=== PATIENT | female | born 1985 | race Caucasian/White ===

== ENCOUNTER 2020-11-02 02:42 | Day surgery (SDC) | payer OTHER, SELFPAY ==
--- NOTE | 2020-10-30 13:15 | PM.IMHP ---
H&P: HPI History of Present Illness Date/Time: 10/30/20 13:15 35-year-old 4 para 1 admitted for diagnostic laparoscopy. She complains of pain and dyspareunia. She has had multiple miscarriages and has a family history of endometriosis. Ultrasound was and helpful. Risks and benefits reviewed in full Chief Complaint: pelvic pain and dyspareunia Review of Systems Review of Systems: All systems reviewed & are unremarkable except as noted in HPI and below PMFSH Family History Family History Other Family history of coronary artery disease Hypertension Social History Social History Smoking status: Never smoker Smoking end date: 03/09/06 Alcohol intake: never Meds Home Medications and Allergies Allergies Allergy/AdvReac Type Severity Reaction Status Date / Time No Known Allergies Allergy Mild Unverified 03/01/19 16:10 Exam Const: General: no acute distress Eyes: General: appearance normal, both eyes and all related structures Neck: Neck: supple and no JVD Thyroid: thyroid normal Resp: Effort & Inspection: normal respiratory effort Auscultation: clear to auscultation bilaterally Cardio: Rate: regular rate Rhythm: regular rhythm GI: Inspection: non-distended GI Palp: Yes Soft to palpation, No Tenderness to palpation present (GI) and No Guarding due to palpation present (GI) Auscultation: normal bowel sounds : External Female Exam: normal external appearance Speculum Exam - Vagina: normal appearance of the vagina Speculum Exam - Cervix: Cervical os closed Bimanual exam- vagina & uterus: enlarged and Uterine tenderness Bimanual Exam- Adnexa, other: tender Skin: General skin exam: no rashes or lesions noted Extrem: General: normal to inspection and no edema Psych: Mental Status: mental status grossly normal Affect: normal affect Assessment and Plan Additional Plan impression: Chronic pelvic pain Plan: Diagnostic laparoscopy. Risks and benefits reviewed in full
[2020-11-01 09:45] VITALS: BMI 36.6
--- NOTE | 2020-11-01 13:17 | WPDANESEPPF ---
Anes - Initial Pre Proc Eval Procedure: Operation Date: 11/02/20 09:30 Proposed Procedures p Diagnostic Laparoscopy - Jose De Jesus Salmon MD Date/Time: 11/01/20 13:17 Surgeon: Jose De Jesus Salmon MD Pre Op Diagnosis: pelvic pain Patient Data Age: 35 Gender: F Height: 1.65 m Weight: 99.79 kg Allergies Allergy/AdvReac Type Severity Reaction Status Date / Time No Known Allergies Allergy Mild Verified 11/02/20 07:38 Home Medications Medication Instructions Recorded Confirmed Type cholecalciferol (vitamin D3) 125 mcg PO DAILY 11/01/20 11/02/20 History [Dialyvite Vitamin D] folic acid 0.8 mg PO DAILY 11/01/20 11/02/20 History fs-jsuixqn-cav-iron fm-FA-vitK 1 tablet PO DAILY 11/01/20 11/02/20 History [One-A-Day Women's Complete] hydrocodone-acetaminophen 1 tablet PO Q4H PRN #30 tablet 11/02/20 Rx Patient hx anesthesia problems: none Family hx anesthesia problems: none PMFSH Past Medical History Medical History (Updated 11/02/20 @ 07:17 by Jose De Jesus Salmon MD) Anxiety Rheumatoid arthritis Surgical History Surgical History (Updated 11/01/20 @ 13:18 by Dann Goldberg DO) History of History of cholecystectomy Family History Family History Other Family history of coronary artery disease Hypertension Social History Social History Smoking packs per day: 0.5 Smoking cigarettes per day: 10.0 Years smoked: 2 Smoking pack-years: 1.00 Smoking status: Former smoker Tobacco type: cigarettes Second hand tobacco smoke exposure: No Smoking end date: 11/01/05 Alcohol intake: current Drinks per week: 1 Alcohol use details: BEER Substance use: never Living arrangements: with family Spiritual care concerns: No Anes - Eval Final PreProcedure Day of Procedure 11/01/20 13:17 Patient weight: obese Heart: regular rate and rhythm Lungs: clear to auscultation and normal air movement Airway: Mallampati scale class II Neurological: alert and oriented Last oral intake: >/= 8 hours ASA classification: II Emergent: no Anesthetic plan: proceed Anesthesia type and monitoring: general ETT and standard monitoring Informed Consent: The patient's anesthetic plan and its attendant risks and benefits were discussed with the patient/family/POA. Questions were solicited and answers provided to the satisfaction of the patient/family/POA.
[2020-11-02] VITALS (9 sets, daily range): BP systolic 136–172; BP diastolic 84–114; PULSE 50–76; RESP 12–18; TEMP 36.1–36.4; O2SAT 96–100
--- NOTE | 2020-11-02 07:16 | WPDHPUPDATE1 ---
History and Physical Update Update Date/Time: 11/02/20 07:16 History and Physical has been reviewed, including an updated exam of the patient. There are NO changes in the patient's condition. Risks, benefits, and alternatives have been discussed and questions answered. Patient agrees to proceed with procedure.
[2020-11-02] MEDS: LACTATED RINGERS 1,000 ML 30 ML IV CONT ×2 (07:56→11:16)
[2020-11-02] MEDS: KETOROLAC 15 MG/ML VIAL (*BKC) IV PUSH (08:00)
[2020-11-02] MEDS: ACETAMINOPHEN 500 MG TABLET 1000 MG PO (08:00)
--- NOTE | 2020-11-02 08:04 | SUR.PREOP ---
patient updated on surgery delay, will update when more information is available.
--- NOTE | 2020-11-02 09:06 | SUR.PREOP ---
patient updated that delay is approx 1.5 hours with surgery time approximately 11:00. called and notified as well.
--- NOTE | 2020-11-02 11:03 | W.PM.PROC2 ---
Procedure Note - Detailed Date of Procedure 11/02/20 Pre-op Diagnosis pelvic pain Post-op Diagnosis other (Endometriosis was present and a large right ovarian cyst) Procedure Performed Laparoscopic destruction of endometriosis/destruction of right ovarian cyst Surgeon Jose De Jesus Salmon MD Anesthesia general Indications The left ovary was absent and a stub of the left tube was present. The right ovary contained multiple follicular cyst. The uterus appeared within normal limits. There were areas of endometriosis along the right and left uterosacral ligament in the form of powder burn lesions. The appendix appeared normal. Gallbladder was unable be seen and was suspected to have been removed secondary to the scarring over the liver Description of Procedure The patient was prepped draped in the normal sterile fashion placed in the dorsal lithotomy position. Under excellent general endotracheal anesthesia weighted speculum placed in posterior fornix vagina. Anterior lip of the cervix was then grasped with a single-tooth tenaculum. And attached to the for uterine manipulation. The bladder was emptied of clear urine in the weighted speculum was removed. Gloves were changed An infraumbilical incision made the Veress needle passed in the abdomen. The abdomen filled with CO2 gas to 15 of mercury. The 5mm trocar advanced in the abdomen under direct visualization assuring no injury. The patient was placed in Trendelenburg and a suprapubic incision made. The 5mm trocar advanced into the abdomen under direct visualization assuring no injury. The above findings were seen. The right ovary was opened in several of its follicles and drained of follicular clear fluid irrigation was undertaken. The left ovary was absent. The areas of endometriosis along the right and left uterosacral ligament were photo documented. These were then cauterized at 35 w per 2nd with monopolar cautery irrigated. The remainder the pelvis appeared within normal limits. The lower site removed. The gas removed from the abdomen. The upper site removed. Incisions closed with 4-0 Monocryl and glue. The instruments removed from the vagina. The patient was awakened. She went to recovery in satisfactory condition. All sponge, needle, instrument counts were correct. There were no immediate complications. Estimated Blood Loss 5 Drains No Packing No Pathology none sent Complications No immediate complications Condition stable Disposition PACU
[2020-11-02] MEDS: fentaNYL CITRATE INJ (*CRX) 100 MCG/2 ML VIAL 25 MCG IV PUSH ×8 (11:25→12:02)
[2020-11-02] MEDS: oxyCODONE HCL (*CRX) 5 MG TAB IR PO (12:29)
== END 2020-11-02 13:16 | disposition home or self-care (01) ==
PROVIDERS: PCP Family Medicine; Visit Provider Obstetrics & Gynecology
PROC: (CPT 49320; principal; 2020-11-02 09:30)
DX: R10.2 Pelvic and perineal pain (principal); N83.01 Follicular cyst of right ovary; N80.3 Endometriosis of pelvic peritoneum; F41.9 Anxiety disorder, unspecified; M06.9 Rheumatoid arthritis, unspecified; Z87.891 Personal history of nicotine dependence; E66.9 Obesity, unspecified; Z68.37 Body mass index [BMI] 37.0-37.9, adult; N94.10 Unspecified dyspareunia
CPT/HCPCS: 58662; 36415; 86850; 86900; 86901; A9270; J0330; J1200; J1885; J2250; J2405; J2704; J3010; J7030; J7120

== ENCOUNTER 2022-11-22 09:38 | Emergency (ER) | payer OTHER, SELFPAY ==
--- NOTE | ~2022-11-22 | XR_ITS ---
XR ankle RT min 3V DATE: 11/22/2022 10:09 INDICATION: Ankle injury TECHNIQUE: 4 views COMPARISON: None FINDINGS: Mild to moderate lateral ankle soft tissue swelling. No fracture or dislocation of the ankl e or disruption of the ankle mortise is detected. Mild plantar and mild prominent posterior calcaneal enthesopathy IMPRESSION: Mild to moderate lateral ankle soft tissue swelling; no fracture or dislocation Plantar and posterior calcaneal enthesopathy Reviewed, dictated and finalized at location [facility].
--- NOTE | ~2022-11-22 | XR_ITS ---
XR ankle LT min 3V DATE: 11/22/2022 10:09 INDICATION: Ankle injury, pain TECHNIQUE: 4 views COMPARISON: None FINDINGS: Mild plantar calcaneal enthesopathy. No fracture or dislocation of the ankle or disruption of the ankle mortise is detected. No periosteal reaction or bone destruction. IMPRESSION: No fracture or dislocation of the ankle Reviewed, dictated and finalized at location [facility].
[2022-11-22 09:39] VITALS: BP 157/115; PULSE 69; RESP 20; TEMP 36.3; O2SAT 100
--- NOTE | 2022-11-22 10:00 | ED.LOWEXIN ---
HPI - Extremity Injury (Lower) General Chief Complaint: Extremity Injury, Lower Stated Complaint: fall, bilateral ankle injury Time Seen by Provider: 11/22/22 10:00 Source: patient and family (spouse) Mode of arrival: wheelchair Limitations: no limitations History of Present Illness HPI Narrative: patient is a pleasant 37-year-old female who presents emergency department today and wheelchair by private vehicle with her spouse for evaluation of bilateral ankle pain right greater than left. Patient states that she today before coming here had stepped down and rolled her ankle hearing a pop. She states that the bilateral ankles her to the outer aspect of the right is much worse. States she was unable to bear weight. Denies numbness or tingling bilateral extremities. She did not strike her head. Denies any other symptoms. Denies chance of . Related Data Home Medications Medication Instructions Recorded Confirmed cholecalciferol (vitamin D3) 125 125 mcg PO DAILY 11/01/20 11/02/20 mcg (5,000 unit) capsule (Dialyvite Vitamin D) folic acid 800 mcg tablet 0.8 mg PO DAILY 11/01/20 11/02/20 bcskwzcw-ihtkmwf-rokw-iron 18 1 tablet PO DAILY 11/01/20 11/02/20 mg-FA 400 mcg-vit K 25 mcg tablet (One-A-Day Women's Complete(with vit K)) Allergies Allergy/AdvReac Type Severity Reaction Status Date / Time No Known Allergies Allergy Mild Verified 11/22/22 09:44 Review of Systems Review of Systems: CONSTITUTIONAL: Denies fever, chills, or sweats. CARDIOVASCULAR: Denies chest pain, palpitations, or edema. RESPIRATORY: Denies cough or dyspnea. SKIN: Denies rash or itching. MUSCULOSKELETAL: + bilateral ankle pain worse on right. Denies back pain or myalgia. NEUROLOGIC: Denies headache, numbness, or weakness. PSYCHIATRIC: Denies anxiety or depression. All systems reviewed & are unremarkable except as noted in HPI and below PMFSH Past Medical History Medical History Anxiety Rheumatoid arthritis Surgical History Surgical History History of History of cholecystectomy Family History Family History Other Family history of coronary artery disease Hypertension Social History Social History Smoking packs per day: 0.5 Smoking cigarettes per day: 10.0 Years smoked: 2 Smoking pack-years: 1.00 Smoking status: Former smoker Tobacco type: cigarettes Second hand tobacco smoke exposure: No Smoking end date: 11/01/05 Alcohol intake: current Drinks per week: 1 Alcohol use details: BEER Substance use: never Living arrangements: with family Spiritual care concerns: No Exam Narrative: GENERAL: Well-appearing, well-nourished, obese, lying on exam stretcher, appears mildly uncomfortable/in pain. no distress noted. HEAD: Normocephalic, atraumatic. NECK: Supple. CHEST: respirations regular and non-labored. HEART: Regular rate. Normal peripheral pulses. 2+ pedal pulse bilaterally EXTREMITIES: TTP to the lateral malleolus to both left and right ankles. there is swelling bilaterally to lateral aspect R>L. decreased ROM due to pain. no Achilles instability or tenderness. no distal tib/fib tenderness. no ankle instability noted. able to move toes on both feet. SKIN: Warm, dry, no rash. NEURO: No focal deficits. Alert and oriented x3. CN II-XII grossly intact. distal NV intact to BLE PSYCH: Normal mood and affect. Course Vital Signs Vital signs: Vital Signs Temperature 97.4 F L 11/22/22 09:39 Pulse Rate 69 11/22/22 09:39 Respiratory Rate 20 11/22/22 09:39 Blood Pressure 157/115 H 11/22/22 09:39 Pulse Oximetry 100 11/22/22 09:39 Oxygen Delivery Room Air 11/22/22 09:39 Temperature 97.4 F L 11/22/22 09:39 Pulse Rate 69
[2022-11-22] MEDS: HYDROcodone/acetaminophen (*CRX) 7.5-325 MG TABLET 1 TAB PO (11:11)
[2022-11-22] MEDS: KETOROLAC 30 MG/ML VIAL (*BKC) IM (11:12)
== END 2022-11-22 11:26 | disposition home or self-care (01) ==
PROVIDERS: Emergency Provider Nurse Practitioner; PCP Family Medicine
DX: S93.401A Sprain of unspecified ligament of right ankle, initial encounter (principal); S93.402A Sprain of unspecified ligament of left ankle, initial encounter; R03.0 Elevated blood-pressure reading, without diagnosis of hypertension; F41.9 Anxiety disorder, unspecified; M06.9 Rheumatoid arthritis, unspecified; X50.0XXA Overexertion from strenuous movement or load, initial encounter
CPT/HCPCS: 73610; 96372; 99284; A9270; J1885

== ENCOUNTER 2023-06-10 13:41 | Outpatient (CLI) | payer OTHER, SELFPAY ==
--- NOTE | ~2023-06-10 | MM_ITS ---
EXAMINATION: MM screening casey BI w nieves HISTORY: Screening TECHNIQUE: Craniocaudal and mediolateral oblique 3-D tomosynthesis images were obtained and synthetic 2-D images were generated. CAD analysis was submitted and interpreted. COMPARISON: No prior mammogram is available for comparison at this institution. BREAST PARENCHYMAL COMPOSITION: Dense: The breasts are extremely dense, which lowers the sensitivity of mammography. FINDINGS: There is no evidence of suspicious mass, calcification, or architectural distortion to sugg est malignancy in either breast. There has been no suspicious interval change. IMPRESSION: 1. No mammographic evidence of malignancy. 2. Recommend routine screening mammography in one year. BI-RADS Category 1: Negative Reviewed, dictated and finalized at location [facility].
== END 2023-06-10 13:42 ==
LOC: MICIMG 13:43
PROVIDERS: PCP Obstetrics & Gynecology; Visit Provider Obstetrics & Gynecology
DX: Z12.31 Encounter for screening mammogram for malignant neoplasm of breast (principal)
CPT/HCPCS: 77063; 77067

== ENCOUNTER 2023-07-27 09:42 | Outpatient (CLI) | payer OTHER, SELFPAY ==
[2023-07-27 10:47] LABS: Basophils Absolute Auto 0.1 K/mm3 (0.0-0.1); Eosinophils Absolute Auto 0.2 K/mm3 (0-0.3); Eosinophils Percent Auto 1.9 % (0-4.4); Hemoglobin 11.7 g/dL (12.0-15.0); Immature Granulocyte Absolute 0.05 K/mm3 (0.00-0.031); Immature Granulocyte Percent A 0.5 % (0-0.5); Lymphocytes Absolute Auto 2.95 K/mm3 (0.9-3.2); Lymphocytes Percent Auto 31.5 % (18.3-44.2); Mean Corpuscular HGB Conc 30.8 g/dl (32-36); Mean Corpuscular Hemoglobin 26.6 pg (26-34); Mean Corpuscular Volume 86.4 fl (80-100); Monocytes Absolute Auto 0.6 K/mm3 (0.1-0.6); Monocytes Percent Auto 6.3 % (2.6-8.5); Neutrophils Absolute Auto 5.5 K/mm3 (1.3-6.7); Neutrophils Percent Auto 58.8 % (45.5-73.1); Platelet Count Result 376 k/mm3 (150-375); Red Cell Distribution Width 13.7 % (11.5-14.5); White Blood Count 9.4 K/mm3 (4.5-10.0)
[2023-07-27 11:01] LABS: Alanine Aminotransferase 15 U/L (6-35); Albumin Level 4.5 g/dL (3.5-5.1); Alkaline Phosphatase 88 U/L (38-126); Anion Gap 6 mmol/L (4-12); Aspartate Amino Transferase 26 U/L (14-36); Bilirubin,Total 0.5 mg/dL (0.2-1.3); Blood Urea Nitrogen 9 mg/dL (7-17); Calcium 8.7 mg/dL (8.4-10.2); Carbon Dioxide 29 mmol/L (22-30); Chloride 103 mmol/L (98-107); Estimated Glomerular Filt Rate > 60; Glucose 115 mg/dL (65-110); Potassium 3.2 mmol/L (3.4-5.0); Sodium 138 mmol/L (137-145)
== END 2023-07-27 09:43 | disposition home or self-care (01) ==
LOC: ANHLAB 09:43
PROVIDERS: PCP Family Medicine; Visit Provider Physician Assistant
DX: R10.9 Unspecified abdominal pain (principal)
CPT/HCPCS: 36415; 80053; 85025

== ENCOUNTER 2023-07-30 14:51 | Outpatient (CLI) | payer OTHER, SELFPAY ==
--- NOTE | ~2023-07-30 | CT_ITS ---
EXAMINATION: CT abdomen pelvis wo con DATE: 07/30/2023 15:05 INDICATION: Bilateral lower abdominal pain, right greater than left TECHNIQUE: Computed tomography (CT) of the abdomen and pelvis was performed without intravenous contr ast. Automated exposure control and iterative reconstruction technique were employed. Exam dose: 131 7.38 mGy-cm total exam DLP. COMPARISON: None. FINDINGS: The lung bases are clear. Normal heart size. No pericardial or pleural effusion. Status post cholecystectomy. No bile duct or pancreatic duct dilatation. No hepatic, pancreatic, splenic, adrenal or renal space-occupying mass lesion is evident on this limi annette noncontrast examination. No urinary tract calculus or hydroureteronephrosis. The urinary bladder is unremarkable. Approximately 4.3 x 5.3 cm right ovarian cyst with attenuation of approximately 15 Hounsfield units. The uterus and adnexal areas are otherwise unremarkable. Normal caliber of the abdominal aorta. No intraperitoneal or retroperitoneal or pelvic mass lesion or adenopathy or ascites is noted otherwise. Normal appendix. Mild diverticulosis of left and right colon; no CT evidence of diverticulitis. No bowel obstruction, bowel wall thickening, pneumatosis or intraperitoneal free air is detected. Included skeletal structures are unremarkable. IMPRESSION: Status post cholecystectomy Approximately 4.3 x 5.3 cm right ovarian cystic lesion. Consider pelvic ultrasound for further evalua tion as clinically appropriate Mild left or right colonic diverticula; no evidence of diverticulitis Normal appendix Reviewed, dictated and finalized at [facility]. Reviewed, dictated and finalized at location [facility]. IMPRESSION: Status post cholecystectomy Approximately 4.3 x 5.3 cm right ovarian cystic lesion. Consider pelvic ultraso und for further evaluation as clinically appropriate Mild left or right colonic diverticula; no evidence of diverticulitis Normal appendix
== END 2023-07-30 14:52 | disposition home or self-care (01) ==
PROVIDERS: PCP Family Medicine; Visit Provider Physician Assistant
DX: R10.9 Unspecified abdominal pain (principal); Z90.49 Acquired absence of other specified parts of digestive tract; K57.30 Diverticulosis of large intestine without perforation or abscess without bleeding
CPT/HCPCS: 74176

== ENCOUNTER 2024-03-23 11:36 | Outpatient (CLI) | payer OTHER, SELFPAY ==
[2024-03-23 12:11] LABS: Basophils Absolute Auto 0.1 K/mm3 (0.0-0.1); Basophils Percent Auto 0.9 % (0.2-1.2); Eosinophils Absolute Auto 0.2 K/mm3 (0-0.3); Eosinophils Percent Auto 2.5 % (0-4.4); Hematocrit 38.8 % (37.0-47.0); Hemoglobin 11.7 g/dL (12.0-15.0); Immature Granulocyte Absolute 0.03 K/mm3 (0.00-0.031); Immature Granulocyte Percent A 0.4 % (0-0.5); Lymphocytes Absolute Auto 3.23 K/mm3 (0.9-3.2); Lymphocytes Percent Auto 38.1 % (18.3-44.2); Mean Corpuscular HGB Conc 30.2 g/dl (32-36); Mean Corpuscular Hemoglobin 25.6 pg (26-34); Mean Corpuscular Volume 84.9 fl (80-100); Mean Platelet Volume 10.5 fl (7.4-10.4); Monocytes Absolute Auto 0.5 K/mm3 (0.1-0.6); Monocytes Percent Auto 6.1 % (2.6-8.5); Neutrophils Absolute Auto 4.4 K/mm3 (1.3-6.7); Platelet Count Result 400 k/mm3 (150-375); Red Blood Count 4.57 M/mm3 (4.2-5.4); Red Cell Distribution Width 15.3 % (11.5-14.5); White Blood Count 8.5 K/mm3 (4.5-10.0)
[2024-03-23 12:26] LABS: Alanine Aminotransferase 32 U/L (6-35); Albumin Level 4.1 g/dL (3.5-5.1); Alkaline Phosphatase 100 U/L (38-126); Anion Gap 7 mmol/L (4-12); Aspartate Amino Transferase 27 U/L (14-36); Bilirubin,Total 0.7 mg/dL (0.2-1.3); Blood Urea Nitrogen 8 mg/dL (7-17); Calcium 8.7 mg/dL (8.4-10.2); Carbon Dioxide 26 mmol/L (22-30); Chloride 105 mmol/L (98-107); Cholesterol 192 mg/dL (0-200); Estimated Glomerular Filt Rate > 60; Glucose 105 mg/dL (65-110); HDL Direct 58 mg/dL; Sodium 138 mmol/L (137-145); Triglycerides 91 mg/dL (<150)
[2024-03-23 12:37] LABS: LDL Cholesterol Direct 107 mg/dL
[2024-03-23 13:06] LABS: Hemoglobin A1C 6.3 % (<5.7)
== END 2024-03-23 11:37 | disposition home or self-care (01) ==
PROVIDERS: PCP Family Medicine; Visit Provider Student in an Organized Health Care Education/Training Program
DX: I10 Essential (primary) hypertension (principal); E03.9 Hypothyroidism, unspecified; Z13.1 Encounter for screening for diabetes mellitus; Z13.220 Encounter for screening for lipoid disorders; Z82.49 Family history of ischemic heart disease and other diseases of the circulatory system
CPT/HCPCS: 36415; 80053; 80061; 83036; 84439; 84443; 85025

== ENCOUNTER 2024-06-13 11:10 | Outpatient (CLI) | payer OTHER, SELFPAY ==
--- NOTE | ~2024-06-13 | MM_ITS ---
EXAMINATION: MM screening casey BI w nieves HISTORY: Screening TECHNIQUE: Craniocaudal and mediolateral oblique 3-D tomosynthesis images were obtained and synthetic 2-D images were generated. CAD analysis was submitted and interpreted. COMPARISON: 06/10/2023 BREAST PARENCHYMAL COMPOSITION: Dense: The breasts are heterogeneously dense, which may obscure small masses FINDINGS: There is no evidence of suspicious mass, calcification, or architectural distortion to sugg est malignancy in either breast. There has been no suspicious interval change. IMPRESSION: 1. No mammographic evidence of malignancy. 2. Recommend routine screening mammography in one year. BI-RADS Category 1: Negative Reviewed, dictated and finalized at location [facility].
== END 2024-06-13 11:11 | disposition home or self-care (01) ==
LOC: MICIMG 11:10
PROVIDERS: PCP Family Medicine; Visit Provider Obstetrics & Gynecology
DX: Z12.31 Encounter for screening mammogram for malignant neoplasm of breast (principal)
CPT/HCPCS: 77063; 77067